=== PATIENT | female | born 1950 | race Caucasian/White ===

== ENCOUNTER 2017-02-11 18:50 | Emergency (ER) | payer OTHER | END 2017-02-11 21:40 | disposition home or self-care (01) | LOC: ER 18:50 | DX: R10.30 Lower abdominal pain, unspecified (principal); M54.5 Low back pain; R50.9 Fever, unspecified; R35.0 Frequency of micturition; E78.5 Hyperlipidemia, unspecified; F41.9 Anxiety disorder, unspecified; F17.220 Nicotine dependence, chewing tobacco, uncomplicated; Z79.899 Other long term (current) drug therapy; Z88.0 Allergy status to penicillin; Z88.2 Allergy status to sulfonamides | CPT/HCPCS: 36415 ==